=== PATIENT | male | born 1935 | race Caucasian/White ===

== ENCOUNTER 2016-09-04 10:54 | Emergency (ER) | payer OTHER, BC ==
[~2016-09-04] VITALS: Ht 170.2 cm; Wt 78.2 kg
[~2016-09-04 10:54] MED LIST: ASPERDRINK81 MG PO; ATORVASTATIN CA20 MG PO; CENTRUM SILVER1 EAC3 PO; GLUCOSAMINE1000 MG PO; MOBIC7.5 MG PO; NEXIUM40 MG PO; PREDNISONE10 M1 PO; TAMSULOSIN HCL0.4 MG PO; VENLAFAXINE H37.5 M3 PO
[2016-09-04] MEDS ORDERED: MOTRIN600 MG PO (12:59)
[2016-09-04] MEDS ORDERED: NORCO 5/3251 TABLET PO (12:59)
[2016-09-04 13:10] VITALS: BP 138/80
== END 2016-09-04 13:11 | disposition home or self-care (01) ==
LOC: EME 10:54
DX: S86.911A Strain of unspecified muscle(s) and tendon(s) at lower leg level, right leg, initial encounter (principal); M79.661 Pain in right lower leg; X58.XXXA Exposure to other specified factors, initial encounter; E78.5 Hyperlipidemia, unspecified; Z95.1 Presence of aortocoronary bypass graft
CPT/HCPCS: 93971; 99281; 99284